=== PATIENT | female | born 1960 | race Caucasian/White ===

== ENCOUNTER 2021-03-29 08:25 | Outpatient (CLI) | payer OTHER | END 2021-03-29 08:27 | disposition home or self-care (01) | LOC: SONOGRAMA 08:25 → MAMO-SONO 09:00 | DX: M21.851 Other specified acquired deformities of right thigh (principal); G03.1 Chronic meningitis; M79.89 Other specified soft tissue disorders ==

== ENCOUNTER 2021-08-15 11:34 | Outpatient (CLI) | payer OTHER | END 2021-08-15 16:06 | disposition home or self-care (01) | LOC: EDBD 11:34 → RAD 11:34 | PROVIDERS: ATTEND Orthopaedic Surgery | DX: M25.571 Pain in right ankle and joints of right foot (principal) ==

== ENCOUNTER 2021-08-22 10:06 | Outpatient (CLI) | payer OTHER | END 2021-08-22 10:13 | disposition home or self-care (01) | LOC: MRI 10:06 → EDBD 10:06 → MRI 10:13 | PROVIDERS: ATTEND Psychiatry & Neurology Neurology | DX: R42 Dizziness and giddiness (principal); R51.0 Headache with orthostatic component, not elsewhere classified | CPT/HCPCS: 70551 ==

== ENCOUNTER 2021-08-24 08:43 | Outpatient (CLI) | payer OTHER | END 2021-08-24 08:54 | disposition home or self-care (01) | LOC: MRI 08:43 | PROVIDERS: ATTEND Orthopaedic Surgery | DX: R22.40 Localized swelling, mass and lump, unspecified lower limb (principal) | CPT/HCPCS: 73720; Q9965 ==

== ENCOUNTER 2021-10-10 09:39 | Outpatient (CLI) | payer OTHER | END 2021-10-10 09:47 | disposition home or self-care (01) | LOC: SONOGRAMA 09:39 | PROVIDERS: ATTEND Physical Medicine & Rehabilitation | DX: M25.571 Pain in right ankle and joints of right foot (principal); M79.671 Pain in right foot ==

== ENCOUNTER 2021-12-25 10:35 | Outpatient (CLI) | payer OTHER | END 2021-12-25 10:36 | disposition home or self-care (01) | LOC: NUCLEAR 10:35 | PROVIDERS: ATTEND Physical Medicine & Rehabilitation | DX: I82.409 Acute embolism and thrombosis of unspecified deep veins of unspecified lower extremity (principal) ==